=== PATIENT | male | born 1940 | race Caucasian/White ===

== ENCOUNTER → 2019-04-06 07:20 | Day surgery (SDC) | payer MEDICARE, OTHER ==
--- NOTE | 2019-03-30 01:55 | HP ---
CC: Dr. Cipriano Peralta; Dr. Alexandru Adame * HISTORY AND PHYSICAL: DATE OF PLANNED ADMISSION AND SURGERY: 04/06/19 HISTORY OF PRESENT ILLNESS: Mr. Turner is an 78-year-old white male who is admitted with a bladder tumor for cystoscopy, excisional biopsy and fulguration under intravenous sedation. Please refer to the detailed cardiology note and history and physical by Dr. Nicole dated 03/15/19 and included in the patient's chart. I have been following Mr. Turner for the last 15 years because of history of bladder tumors. The tumors were medium grade and noninvasive and were treated with excision and then with intravesical BCG. He had several superficial recurrences since his diagnosis and the last one was 7 years ago. 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 At that time, work-up with CT of the abdomen and pelvis and with bone scan was negative. He received a full course of external beam radiation therapy completed recently. The patient was seen in my office for his follow-up yearly surveillance cystoscopy. The cystoscopy showed a 5-10 mm papillary lesion in the left base of the bladder. 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 The lesion could have been fulgurated in the office under local anesthesia. However, the patient has a pacemaker, and using cautery in the office was not felt to be safe. PAST MEDICAL HISTORY AND SYSTEM REVIEW: The patient has significant degree of ischemic cardiomyopathy, diminished ejection fraction and had been followed by Dr. Nicole in [place]. The patient was seen last month for his routine evaluation and I am including the note of Dr. Nicole. I discussed with Dr. Nicole the cystoscopy findings and the plan for performing cystoscopy and excisional biopsy and fulguration under IV sedation with anesthesia and EKG monitoring and he felt there should not be any contraindication to the procedure. The patient has chronic COPD and maintained on 24-hour oxygen. He has a pacemaker in place. MEDICATIONS: His medications are: 1. Furosemide 40 mg daily. 2. WelChol 625 mg three tablets twice a day. 3. Nitrostat 0.4 mg under the tongue as needed for chest pain. 4. Spiriva inhaler daily. 5. Advair 1 puff twice a day. 6. Aspirin 81 mg daily. 7. Entresto 24-26 mg one tablet twice a day. 8. Daliresp 500 mcg half a tablet by mouth every day. ALLERGIES: The patient reports being allergic or having intolerance to SIMVASTATIN, CRESTOR, and ZETIA. SOCIAL HISTORY: He gives past history of chronic smoking. PHYSICAL EXAMINATION GENERAL: He is a pleasant white male who is on oxygen and looks his age. VITAL SIGNS: Blood pressure 130/70, pulse of 50. LUNGS: Clear. Occasional wheezing. HEART: Regular and rhythmic. No murmurs. ABDOMEN: Soft without any masses. RECTAL: Showed firm nodule in the left lobe of the prostate. IMPRESSION: 1. History of bladder tumor with small recurrence in the left base of the bladder on recent office cystoscopy. 2. Prostate carcinoma, bulky Crista 7 disease. Treated with a combination of hormone ablation therapy and radiation therapy. 3. Ischemic cardiomyopathy with ejection fraction of 20% to 25%. 4. Chronic obstructive pulmonary disease, on 24-hour oxygen. PLAN: Plan is for cystoscopy, excisional biopsy and fulguration of the bladder tumor. The plan is to perform the procedure under intravenous sedation with anesthesia and EKG monitoring because of the presence of pacemaker. I discussed the above plans with the patient. All his questions were answered. [id number]/[facility] #: [id number] VIK
[~2019-04-06 07:20] MED LIST: Acetaminophen TAB* 325 MG PO PRN; Buffered Lidocaine 1% SYRIN* 1 ML/SYRINGE INTRADERM ONE; Dexamethasone IV* 4 MG/ML 1 ML (4 MG) IV SLOW PU ONE; Dexamethasone IV* 4 MG/ML 1 ML (4 MG) ONE; Famotidine IV* 10 MG/ML 2 ML (20 mg) IV ONE; Famotidine IV* 10 MG/ML 2 ML (20 mg) ONE; HYDROcodone/ACETAMIN 5-325 MG* 1 TAB PO PRN; Ibuprofen TAB* 600 MG PO PRN; Lactated Ringers 1000 ML Bag* 1,000 ML IV SCH; Levalbuterol 0.63MG/3ML NEB* UNIT OF USE INH ONE; Lidocaine 2% JELLY* 6 ML JELLY TOPICAL ONE; Midazolam* 1 MG/ML 2 ML VIAL (2 MG) ONE; Naloxone* 0.4 MG/ML 1 ML VIAL IV PRN; Ondansetron INJ* 2 MG/ML VIAL IV PRN; cefTRIAXone(*) 1 GM ADVAN/BAG ONE; fentaNYL* 50 MCG/ML 2 ML VIAL (100 MCG VIAL) IV PRN; fentaNYL* 50 MCG/ML 2 ML VIAL (100 MCG VIAL) ONE; mitoMYcin PWD* 40 MG in Sterile Water for Inj* 40 ML IRRIGATION ONE
--- NOTE | 2019-04-06 16:22 | OP ---
CC: Suresh Gooden RPA-C OPERATIVE REPORT: DATE OF OPERATION: 04/06/19 DATE OF : 36 SURGEON: Pramod Tong MD ANESTHESIOLOGIST: Dr. Akbar Benavides. ANESTHESIA: IV sedation with MAC. PRE-OP DIAGNOSIS: Bladder tumor, left base. POST-OP DIAGNOSIS: Bladder tumor, left base. OPERATIVE PROCEDURE: 1. Cystoscopy. 2. Excisional biopsy and fulguration of bladder tumor of the left base (1 cm). INDICATION FOR PROCEDURE: Mr. Turner is an 78-year-old white male who was diagnosed about 15 years ago with medium grade non invasive bladder tumors and had his last recurrence 7 years ago. Recently, he completed a course of external beam radiation therapy for Crista 7 adenocarcinoma of the prostate. He has been asymptomatic. He had a recent office surveillance cystoscopy which showed a low-grade looking tumor arising from the left base of the bladder measuring just under 1 cm in size. The patient has a pacemaker in place. Because of the above findings, the patient is admitted for the above procedure. PATHOLOGY: At cystoscopy, the penile and bulbar urethrae looked normal. The prostatic urethra measured about 2.5 cm in length and there was early obstruction by prostate enlargement. Examination of the bladder showed a 1 cm papillary lesion arising from the left base of the bladder lateral to the left ureteral orifice. The tumor had the appearance of a low-grade noninvasive transitional cell carcinoma. The rest of the urinary bladder looked normal. There were no other suspicious lesions seen. No calculi or diverticula were noted. DESCRIPTION OF PROCEDURE: With the patient in the lithotomy position and after proper scrubbing and draping and under intravenous sedation with anesthesia and cardiac monitoring because of his pacemaker, the patient was prepped and draped for a cystoscopy. Xylocaine jelly was instilled into the urethra. Cystoscopy was then performed and the bladder was carefully inspected and the above findings were noted. Using the rigid biopsy forceps, the tumor in the left base of the bladder was excised and sent for pathology. The site of the biopsy and the surrounding area were thoroughly fulgurated with the Bugbee electrode achieving very good hemostasis. Final inspection showed no residual tumors, good hemostasis, no evidence of bladder perforation. The cystoscope was removed and a 16-Syrian Wade catheter was passed inside the bladder and the balloon inflated with 10 cc of water. The patient tolerated the procedure well and left the operating room in good condition. There was no blood loss and the specimen was bladder tumor. The plan is to give the patient 1 dose of intravesical mitomycin-C in the recovery room. [id number]/[facility] #: [id number] MTDD
[2019-04-06 16:33] VITALS: BP 143/96
== END | disposition home or self-care (01) ==
LOC: OR 07:20
PROVIDERS: ATTEND Urology
PROC: 0TJB8ZZ Inspection of Bladder, Via Natural or Artificial Opening Endoscopic (ICD-10-PCS; principal; 2019-04-06 09:15)
DX: C67.9 Malignant neoplasm of bladder, unspecified (principal); J44.9 Chronic obstructive pulmonary disease, unspecified; Z79.82 Long term (current) use of aspirin; Z88.8 Allergy status to other drugs, medicaments and biological substances; Z87.891 Personal history of nicotine dependence
CPT/HCPCS: 88305; J0696; J1100; J2250; J3010; J9280